=== PATIENT | male | born 1945 | race Caucasian/White ===

== ENCOUNTER 2023-07-24 13:21 | Emergency (ER) | payer MEDICARE, SELFPAY ==
[2023-07-24 13:40] LABS: VBG PCO2 80.7 mmol/L (35-51); VBG PH 6.91 mmol/L (7.31-7.41); VBG PO2 92.1 mmol/L (28-40); VBG Total CO2 18.4 mmol/L (23-27)
[2023-07-24 13:41] LABS: VBG Base Excess -16.5 mmol/L (-2.4-2.3); VBG Oxygen Saturation 88.6 % (50-70)
--- NOTE | 2023-07-24 14:05 | PC.NURSE ---
director of training notified
--- NOTE | 2023-07-24 14:07 | PC.NURSE ---
attempted to call [facility] no answer
--- NOTE | 2023-07-24 14:21 | PC.NURSE ---
spoke with Deneen at [facility], reports they will give us a call back after screening, do not release to home yet.
--- NOTE | 2023-07-24 14:22 | PC.NURSE ---
1321-arrival to ED per [facility] treatment [employer]: witnessed arrest at pts home, pt had dialysis today. Defibrillation x5, Epi IV x5, Amiodarone 300 mg IV, IO R Tibia, IGEL airway inserted. 1322-fsbs 217 1323 pulse check, no pulse, vfib on monitor, shock, CPR resumed after shock 1323- EPI IV given 1324- Calcium chloride 1g IV 1326-pulse check, no pulse, Vfib on monitor, shock, CPR resumed after shock 1326-Epi given IV 1329-pulse check, no pulse, shock, CPR resumed after shock. 1329-Calcium chloride 1g IV 1330-EPI IV given 1331- Amiodarone 150 mg IV given 1332-pulse check, no pulse, Vfib, shock, CPR resumed 1334- EPI given IV 1334-pulse check, no pulse, Vfib, shock, CPR resumed 1335- Narcan 1mg given IV 1336- pulse check, no pulse, vfib on monitor, shock, CPR resumed 1337- Epi given IV 1337-calcium chloride 1gr IV given 1338- pulse check, no pulse, vfib on monitor, shock, CPR resumed 1341-pulse check, no pulse, TOD called per Dr. Shipley- 1341
--- NOTE | 2023-07-24 14:42 | PC.NURSE ---
[facility] called back requested contact info for pts next of kin (son), phone number given
[2023-07-24 15:45] VITALS: BP 00/00; PULSE 0; RESP 0; TEMP -17.7; TEMP 0
--- NOTE | 2023-07-25 08:22 | HMH.EDGENADL ---
Discharge Plan Disposition Patient Disposition: Date/Time: 07/24/23 13:40 Clinical Impressions Clinical Impression: Cardiac arrest Discharge ED Provider: Lexx Shipley Adult HPI General Stated complaint: arrest Time Seen by Provider: 07/24/23 14:32 History of Present Illness HPI narrative: Patient arrived to the emergency department in cardiac arrest with ongoing CPR. Patient had witnessed arrest by family members, initial rhythm ventricular fibrillation. ROSC was transiently achieved en route. Patient had 5 shocks administered, 350 mg amiodarone administered by EMS as well as multiple doses of epinephrine. History limited secondary to acuity of patient's condition however patient is on dialysis, recent dialysis today. No known recent travel or other respiratory symptoms. CPR had been ongoing for approximately 30 minutes prior to arrival. Oral airway placed by EMS [facility] Disclaimer: The information contained in this section may have been updated after the patient was seen, as this information can be updated by other users. Social History Smoking Status: Unknown if ever smoked alcohol intake: former year quit: unk current occupational status: other Travel in the last 8 weeks: None ROS Obtained: Yes unobtainable due to mental status As per HPI Physical Exam General General appearance: other (Unresponsive, fixed dilated pupils) Head Head exam: atraumatic Respiratory Respiratory exam: Present normal lung sounds bilaterally Cardiovascular Cardiovascular exam: Present other (No pulse palpated, ventricular fibrillation on monitor) Abdominal Exam Abdominal exam: Present soft; Absent distention Neurological Exam Neurological exam: Present other (GCS 3 T) Medical Decision Making Medical Records Medical records reviewed: Yes I reviewed the patient's medical records. Jg Inquiry Pt receiving controlled substance: No Vital Signs: 07/24/23 15:45 Temperature 0 F L Pulse Rate 0 L Respiratory Rate 0 L Blood Pressure 00/00 L Lab Data Lab Results 07/24/23 13:35: VBG pH 6.91 L, VBG pCO2 80.7 H, VBG pO2 92.1 H, VBG HCO3 16.0 L, VBG Total CO2 18.4 L, VBG O2 Saturation 88.6 H, VBG Base Excess -16.5 L Orders (Tests/Meds): ORDERS Category Date Time Status Venous Blood Gas Routine RT 07/24/23 13:35 Completed Medical Decision Narrative: Patient with history and exam per above presenting for evaluation of cardiac arrest Diagnoses considered include hypoxia, hypo or hyperkalemia, hypovolemia, hypothermia, acidosis, tension pneumothorax, tamponade, thrombosis, myocardial infarction, toxin ED workup and treatment included: ORDERS Category Date Time Status Venous Blood Gas Routine RT 07/24/23 13:35 Completed Patient was given empiric treatment with 1 L IV fluids, 3 g calcium, additional dose of amiodarone, 150 mg, approximately 6 rounds of CPR were administered while in the emergency department. Patient continued to have no palpable pulses, several additional asynchronous shocks were administered for refractory ventricular fibrillation. Labs were independently interpreted by me, significant for marked acidosis, no acute anemia, no hypokalemia or hyperkalemia Given prolonged downtime, reversible causes addressed and refractory cardiac arrest, at this time a code was called, patient was pronounced is . Critical Care Critical Care Time Critical Care Time: Yes Attestation: On 07/24/23, the high probability of a clinically significant, sudden or life threatening deterioration of the following system(s) required my full and direct attention, intervention and personal management. The time I documented below is in addition to time spent performing reported procedures but includes the following listed in this critical care notation. Total Time Total Critical Care Time: 60
--- NOTE | 2023-07-26 18:00 | PC.NURSE ---
Contacted MD Shipley to confirm cause of and autopsy consideration paper. Per pt COD was cardiac arrest, no autopsy was performed per family request. aware and okay by to sign paper of said information.
--- NOTE | 2023-08-13 19:50 | EXP.DEATH.NO ---
Pronouncement Note Date and Time of Date of : 07/24/23 Time of : 13:40 PCOD Preliminary cause of : Cardiac arrest Additional Data Confirmation of : no pulse, no respirations, no heart sounds and pupils fixed and dilated Family: contacted
== END 2023-07-24 15:45 | disposition expired ==
PROVIDERS: Emergency Provider Emergency Medicine
DX: I46.9 Cardiac arrest, cause unspecified (principal); N18.6 End stage renal disease; E87.20 Acidosis, unspecified; Z99.2 Dependence on renal dialysis
CPT/HCPCS: 92950; 82803; 99285